=== PATIENT | female | born 1990 | race American Indian/Alaskan Native ===

== ENCOUNTER 2018-08-01 13:26 | Emergency (ER) | payer MEDICAID, OTHER ==
[2018-08-01 13:40] VITALS: BP 158/95
--- NOTE | 2018-08-01 13:42 | Emergency Department Report ---
Blank Doc - Documentation Documentation: This is a 27-year-old female that presents with left sided chest pain with rad iation to epigastric area. Denies any SOB. STated is worse when laying down. Denies any n/v. This initial assessment/diagnostic orders/clinical plan/treatment(s) is/are subject to change based on patient's health status, clinical progression and re- assessment by fellow clinical providers in the ED. Further treatment and workup at subsequent clinical providers discretion. Patient/guardians urged not to elope from the ED as their condition may be serious if not clinically assessed and managed. Initial orders include: 1- Patient sent to [facility] for further evaluation and treatment 2- EKG 3- CXR 4- labs
[2018-08-01 14:17] LABS: Basophils % (Auto) 0.8 % (0.0-1.8); Eosinophils # (Auto) 0.2 K/mm3 (0.0-0.4); Eosinophils % (Auto) 4.5 % (0.0-4.3); Hematocrit 36.8 % (30.3-42.9); Hemoglobin 12.3 gm/dl (10.1-14.3); Lymphocytes # (Auto) 1.5 K/mm3 (1.2-5.4); Lymphocytes % (Auto) 29.8 % (13.4-35.0); Mean Corpuscular HGB Conc 33 % (30-34); Mean Corpuscular Volume 88 fl (79-97); Monocytes # (Auto) 0.3 K/mm3 (0.0-0.8); Monocytes % (Auto) 6.9 % (0.0-7.3); Platelet Count 309 K/mm3 (140-440); Red Cell Distribution Width 13.9 % (13.2-15.2)
[2018-08-01 14:27] LABS: INR 0.93 (0.87-1.13)
[2018-08-01 14:28] LABS: Partial Thromboplastin Time 32.8 Sec. (24.2-36.6)
[2018-08-01 14:42] LABS: Alanine Aminotransferase 9 units/L (7-56); Albumin 4.5 g/dL (3.9-5); BUN/Creatinine Ratio 13; Blood Urea Nitrogen 9 mg/dL (7-17); Calcium 9.2 mg/dL (8.4-10.2); Hemolysis Index 11
[2018-08-01] MEDS ORDERED: ALUM-MAG HYDROX-SIMETH 200-200-20MG/5ML PO ONE (14:48)
[2018-08-01] MEDS ORDERED: LOPRESSOR PO ONE (14:48)
[2018-08-01] MEDS ORDERED: LIDOCAINE VISCOUS 2% PO ONE (14:48)
[2018-08-01] MEDS ORDERED: PEPCID PO ONE (14:48)
--- NOTE | 2018-08-01 14:49 | Emergency Department Report ---
ED Chest Pain HPI - General Chief Complaint: Chest Pain Stated Complaint: CHEST PAIN/STOMACH PAIN Time Seen by Provider: 08/01/18 13:40 Source: patient Mode of arrival: Ambulatory Limitations: No Limitations - History of Present Illness Initial Comments: Patient is a pleasant 27-year-old female who comes to the ER complaining of epigastric pain. She is pointing to her epigastrium and it radiates to her chest. It is especially bad at night when she is laying down. Patient has been off her metoprolol since due to insurance reasons. Patient states that she was put on the metoprolol for blood pressure and is unsure if it was related to her heart rate. However, patient does describe a past medical history of having a fast heart rate at times. Patient has no nausea and vomiting. She does not smoke. She is not obese. She has no family history of coronary artery disease. -: Gradual, week(s) Severity scale (0 -10): 8 Consistency: intermittent Aspirin use within the Past 7 Days: (0) No - Related Data On Oral Contraceptives: No Previous Rx's Medication Instructions Recorded Last Taken Type Famotidine [Pepcid] 20 mg PO BID #60 tablet 08/01/18 Unknown Rx Metoprolol [Lopressor TAB] 25 mg PO BID #60 tablet 08/01/18 Unknown Rx Allergies Allergy/AdvReac Type Severity Reaction Status Date / Time No Known Allergies Allergy Verified 02/12/14 15:45 Heart Score - HEART Score History: Slightly suspicious EKG: Normal Age: < 45 Risk factors: No known risk factors Troponin: < normal limit HEART Score: 0 ED Review of Systems ROS: Stated complaint: CHEST PAIN/STOMACH PAIN Other details as noted in HPI Comment: All other systems reviewed and negative Constitutional: denies: chills Eyes: denies: eye pain ENT: denies: ear pain Respiratory: see HPI. denies: cough, orthopnea Cardiovascular: as per HPI, chest pain, palpitations. denies: dyspnea on exertion, orthopnea Endocrine: denies: see HPI Gastrointestinal: as per HPI, abdominal pain. denies: nausea, vomiting Genitourinary: denies: urgency Musculoskeletal: denies: back pain Skin: denies: rash, lesions Neurological: denies: headache, weakness Psychiatric: denies: depression Hematological/Lymphatic: denies: easy bleeding ED Past Medical Hx - Past Medical History Hx Hypertension: Yes Hx Congestive Heart Failure: No Hx Diabetes: No Hx Deep Vein Thrombosis: No Hx Renal Disease: No Hx Sickle Cell Disease: No Hx Seizures: No Hx Asthma: No Hx COPD: No Hx HIV: No - Surgical History Past Surgical History?: No - Family History Family history: no significant - Social History Smoking Status: Never Smoker Substance Use Type: Alcohol - Medications Home Medications: Home Medications Medication Instructions Recorded Confirmed Last Taken Type Famotidine [Pepcid] 20 mg PO BID #60 tablet 08/01/18 Unknown Rx Metoprolol [Lopressor TAB] 25 mg PO BID #60 tablet 08/01/18 Unknown Rx ED Physical Exam - General Limitations: No Limitations General appearance: alert - Head Head exam: Present: normocephalic - Eye Eye exam: Present: normal appearance, PERRL - ENT ENT exam: Present: mucous membranes moist - Neck Neck exam: Present: normal inspection - Respiratory Respiratory exam: Present: normal lung sounds bilaterally - Cardiovascular Cardiovascular Exam: Present: regular rate - GI/Abdominal GI/Abdominal exam: Present: soft, normal bowel sounds - Extremities Exam Extremities exam: Present: normal inspection - Back Exam Back exam: Present: normal inspection - Neurological Exam Neurological exam: Present: alert, oriented X3, normal gait - Psychiatric Psychiatric exam: Present: normal affect, normal mood - Skin Skin exam: Present: warm, dry, intact ED Course Vital Signs 08/01/18 13:39 Temperature 98 F Pulse Rate 88 Respiratory 18 Rate Blood Pressure 158/95 O2 Sat by Pulse 98 Oximetry PRESLEY score - Presley Score Age > 65: (0) No Aspirin use within the Past 7 Days: (0) No 3 or more CAD Risk Factors: (0) No 2 or more Angina events in past 24 hrs: (0) No Known CAD with more than 50% Stenosis: (0) No Elevated Cardiac Markers: (0) No ST Deviation Greater than 0.5mm: (0) No PRESLEY Score: 0 ED Medical Decision Making - Lab Data Result diagrams: 08/01/18 13:58 08/01/18 13:58 - EKG Data EKG shows normal: sinus rhythm Rate: normal - EKG Data Interpretation: no acute changes - Radiology Data Radiology results: report reviewed, image reviewed NAP - Medical Decision Making Vital Signs 08/01/18 13:39 Temperature 98 F Pulse Rate 88 Respiratory 18 Rate Blood Pressure 158/95 O2 Sat by Pulse 98 Oximetry Labs 08/01/18 08/01/18 08/01/18 13:58 13:58 13:58 WBC 5.0 RBC 4.20 Hgb 12.3 Hct 36.8 MCV 88 MCH 29 MCHC 33 RDW 13.9 Plt Count 309 Lymph % (Auto) 29.8 [place] % (Auto) 6.9 Eos % (Auto) 4.5 H Baso % (Auto) 0.8 Lymph # 1.5 [place] # 0.3 Eos # 0.2 Baso # 0.0 Seg Neutrophils % 58.0 Seg Neutrophils # 2.9 PT 13.0 INR 0.93 APTT 32.8 Sodium 141 Potassium 3.3 L Chloride 103.0 Carbon Dioxide 24 Anion Gap 17 BUN 9 Creatinine 0.7 Estimated GFR > 60 BUN/Creatinine Ratio 13 Glucose 82 Calcium 9.2 Total Bilirubin 0.40 AST 15 ALT 9 Alkaline Phosphatase 50 Troponin T < 0.010 Total Protein 7.4 Albumin 4.5 Albumin/Globulin Ratio 1.6 Lipase 29 HCG, Qual 08/01/18 13:58 WBC RBC Hgb Hct MCV MCH MCHC RDW Plt Count Lymph % (Auto) [place] % (Auto) Eos % (Auto) Baso % (Auto) Lymph # [place] # Eos # Baso # Seg Neutrophils % Seg Neutrophils # PT INR APTT Sodium Potassium Chloride Carbon Dioxide Anion Gap BUN Creatinine Estimated GFR BUN/Creatinine Ratio Glucose Calcium Total Bilirubin AST ALT Alkaline Phosphatase Troponin T Total Protein Albumin Albumin/Globulin Ratio Lipase HCG, Qual Negative labs noted ekg normal xray normal dc home with dc plan of care including follow up and her home meds. - Differential Diagnosis MSKL CP V ACS V GERD Critical care attestation.: If time is entered above; I have spent that time in minutes in the direct care of this critically ill patient, excluding procedure time. ED Disposition Clinical Impression: Medical non-compliance, Chronic hypertension, GERD (gastroesophageal reflux disease) Disposition: DC-01 TO HOME OR SELFCARE Is pt being admited?: No Does the pt Need Aspirin: No Condition: Stable Instructions: Gastroesophageal Reflux Disease (ED), Hypertension (ED) Additional Instructions: meds as ordered today follow up with pcp referral below hydrate well with water diet as tolerated avoid spicy food avoid alcohol if you take motrin take with food Prescriptions: Metoprolol [Lopressor TAB] 25 mg PO BID #60 tablet Famotidine [Pepcid] 20 mg PO BID #60 tablet Referrals: DOMENICO CARY MD [Primary Care Provider] - 3-5 Days Time of Disposition: 15:19
--- NOTE | 2018-08-01 15:10 | XRay Report ---
ROUTINE CHEST, TWO VIEWS: HISTORY: chest pain. The trachea, heart, mediastinal contour, lung hudson and bony thorax are unremarkable. IMPRESSION: Unremarkable chest x-ray.
[2018-08-01] MEDS ORDERED: K-DUR PO ONE (15:15)
== END 2018-08-01 15:32 | disposition home or self-care (01) ==
LOC: ED 13:26
DX: K21.9 Gastro-esophageal reflux disease without esophagitis (principal); I10 Essential (primary) hypertension; Z91.19 Patient's noncompliance with other medical treatment and regimen
CPT/HCPCS: 36415; 71046; 80053; 83690; 84484; 84703; 85025; 85610; 85730; 93005; 93010

== ENCOUNTER 2021-02-02 03:27 | Outpatient (CLI) | payer MEDICAID, OTHER ==
[2021-02-02 04:07] VITALS: BP 121/79
[2021-02-02] MEDS ORDERED: LACTATED RINGERS 500 ML IV ONE (05:05)
--- NOTE | 2021-02-02 05:16 | Event Note ---
Date: 02/02/21 FHT's reviewed @ cat 1. Pt reports c/o constipation and cramping which spontaneously subsided upon arrival. Pt reports taking Tylenol PO for pain at home. Abdomen soft and nontender, no HSM. No contractions noted via toco since monitors applied and pt agrees. POC reviewed with pt. Pt verbalizes understanding and agrees to POC. Precautions given.
[2021-02-02 05:27] LABS: Bilirubin,Urine NEG (Negative); Blood,Urine NEG (Negative); Color,Urine Yellow (Yellow); Mucus,Urine FEW /HPF; Protein,Urine <15 mg/dL mg/dL (Negative)
--- NOTE | 2021-02-03 08:05 | Ultrasound Report ---
Obstetrical ultrasound limited INDICATION: Pelvic pain with possible placental abruption IMPRESSION: heart rate measured 145 bpm. The cervical length is 2 cm. No placental abruption id entified. Signer Name: Gunnar Ruiz MD Signed: 02/02/2021 6:17 AM Workstation Name: [id number]
== END 2021-02-02 06:06 | disposition home or self-care (01) ==
LOC: TRG 03:27 → APU 03:28 → TRG 06:06
PROVIDERS: ATTEND Student in an Organized Health Care Education/Training Program
DX: Z34.93 Encounter for supervision of normal pregnancy, unspecified, third trimester (principal); Z3A.32 32 weeks gestation of pregnancy
CPT/HCPCS: 59025; 76815; 81001

== ENCOUNTER 2021-04-05 23:50 | Emergency (ER) | payer MEDICAID ==
[2021-04-06] MEDS ORDERED: ONDANSETRON 4 MG ODT TAB PO ONE (00:40)
[2021-04-06] MEDS ORDERED: HYDROcodone/ACETAMINOPHEN 5-325 MG TAB PO ONE (00:40)
[2021-04-06] MEDS ORDERED: cephALEXin 500 MG CAP PO ONE (00:40)
[2021-04-06] MEDS ORDERED: IBUPROFEN 600 MG TAB PO ONE (00:41)
--- NOTE | 2021-04-06 02:22 | Emergency Department Report ---
- General Chief Complaint: Wound/Laceration Stated Complaint: WOUND OPENED Source: patient Mode of arrival: Ambulatory Limitations: No Limitations - History of Present Illness Initial Comments: Patient is a A0 30-year-old -Sammar[place] female who is about 10 days presents to the ED with open suprapubic wound with purulent discharge and localized pain for the last 8 hours. Patient states that she may have caused the wound to open because she kept lifting her baby and performing certain tasks at home. Patient states that the pain is mild localized in the dehisced areas of the . Patient denies fall, nausea and vomiting, fever, chills, dizziness, syncope, headache, abdominal pain, chest pain or shortness of breath. -: Sudden, hour(s) (8) Location: abdomen (suprapubic) 1 - Suprapubic wound dehiscence Place: home Patient Tetanus UTD: Yes Context: accidental Associated Symptoms: pain. denies: loss of feeling/numbness, suspect foreign body present, unable to move injured part, weakness followed by dizziness, nausea/vomiting, fever - Related Data Home Medications Medication Instructions Recorded Confirmed Last Taken Aspirin [Aspirin BABY CHEW TAB] 81 mg PO QDAY 03/24/21 03/24/21 03/22/21 22:00 Plus Iron Tablet 1 tab PO DAILY 03/24/21 03/24/21 03/22/21 08:00 Previous Rx's Medication Instructions Recorded Last Taken Type Famotidine [Pepcid] 20 mg PO BID #60 tablet 08/01/18 Unknown Rx Metoprolol [Lopressor TAB] 25 mg PO BID #60 tablet 08/01/18 10/10/20 08:00 Rx Docusate Sodium [Colace] 100 mg PO BID PRN #60 capsule 03/26/21 Unknown Rx Ferrous Sulfate [Feosol 325 MG tab] 325 mg PO BID #60 tablet 03/26/21 Unknown Rx HYDROcodone/APAP 5-325 [[place] 1 - 2 each PO Q6HR PRN #20 tablet 03/26/21 Unknown Rx 5/325] Ibuprofen [Motrin] 800 mg PO Q8HR PRN #30 tablet 03/26/21 Unknown Rx Metoprolol [Lopressor] 25 mg PO BID #30 tablet 03/26/21 Unknown Rx Metoprolol [Lopressor TAB] 50 mg PO BID #60 tablet 03/29/21 Unknown Rx cephALEXin [Keflex] 500 mg PO Q6HR #40 capsule 04/06/21 Unknown Rx Allergies Allergy/AdvReac Type Severity Reaction Status Date / Time No Known Allergies Allergy Verified 02/12/14 15:45 ED Review of Systems ROS: Stated complaint: WOUND OPENED Other details as noted in HPI Constitutional: denies: chills, fever Eyes: denies: eye pain, eye discharge, vision change ENT: denies: ear pain, throat pain Respiratory: denies: cough, shortness of breath, wheezing Cardiovascular: denies: chest pain, palpitations Endocrine: no symptoms reported Gastrointestinal: other (suprapubic surgical wound dehiscence with purulent discharge). denies: abdominal pain, nausea, diarrhea Genitourinary: denies: urgency, dysuria, discharge Musculoskeletal: denies: back pain, joint swelling, arthralgia Skin: other (Suprapubic surgical wound dehiscence with purulent discharge). denies: rash, lesions Neurological: denies: headache, weakness, paresthesias Psychiatric: denies: anxiety, depression Hematological/Lymphatic: denies: easy bleeding, easy bruising ED Past Medical Hx - Past Medical History Previous Medical History?: Yes Hx Hypertension: Yes (PIH) Hx Heart Attack/AMI: No Hx Congestive Heart Failure: No Hx Diabetes: No Hx Deep Vein Thrombosis: No Hx Liver Disease: No Hx Renal Disease: No Hx Sickle Cell Disease: No Hx Seizures: No Hx Asthma: No Hx COPD: No Hx HIV: No Additional medical history: PRE-ECLAMPSIA - Surgical History Past Surgical History?: Yes Additional Surgical History: - Social History Smoking Status: Never Smoker Substance Use Type: None - Medications Home Medications: Home Medications Medication Instructions Recorded Confirmed Last Taken Type Famotidine [Pepcid] 20 mg PO BID #60 tablet 08/01/18 03/24/21 Unknown Rx Metoprolol [Lopressor TAB] 25 mg PO BID #60 tablet 08/01/18 03/24/21 10/10/20 08:00 Rx Aspirin [Aspirin BABY CHEW TAB] 81 mg PO QDAY 03/24/21 03/24/21 03/22/21 22:00 History Plus Iron Tablet 1 tab PO DAILY 03/24/21 03/24/21 03/22/21 08:00 History Docusate Sodium [Colace] 100 mg PO BID PRN #60 capsule 03/26/21 Unknown Rx Ferrous Sulfate [Feosol 325 MG tab] 325 mg PO BID #60 tablet 03/26/21 Unknown Rx HYDROcodone/APAP 5-325 [[place] 1 - 2 each PO Q6HR PRN #20 tablet 03/26/21 Unknown Rx 5/325] Ibuprofen [Motrin] 800 mg PO Q8HR PRN #30 tablet 03/26/21 Unknown Rx Metoprolol [Lopressor] 25 mg PO BID #30 tablet 03/26/21 Unknown Rx Metoprolol [Lopressor TAB] 50 mg PO BID #60 tablet 03/29/21 Unknown Rx cephALEXin [Keflex] 500 mg PO Q6HR #40 capsule 04/06/21 Unknown Rx ED Physical Exam - General Limitations: No Limitations General appearance: alert, in no apparent distress - Head Head exam: Present: atraumatic, normocephalic, normal inspection - Eye Eye exam: Present: normal appearance, PERRL, EOMI Pupils: Present: normal accommodation - ENT ENT exam: Present: normal exam, normal orophraynx, mucous membranes moist, TM's normal bilaterally, normal external ear exam - Neck Neck exam: Present: normal inspection, full ROM - Respiratory Respiratory exam: Present: normal lung sounds bilaterally. Absent: respiratory distress, wheezes, rales, rhonchi, chest wall tenderness, accessory muscle use, decreased breath sounds, prolonged expiratory, other - Cardiovascular Cardiovascular Exam: Present: regular rate, normal rhythm, normal heart sounds. Absent: systolic murmur, diastolic murmur, rubs, gallop - GI/Abdominal GI/Abdominal exam: Present: soft, tenderness (Mild suprpaubic tenderness due to a wound dehiscence and moderate purulent discharge), normal bowel sounds. Absent: guarding, rebound, organomegaly - Extremities Exam Extremities exam: Present: normal inspection, full ROM, normal capillary refill - Back Exam Back exam: Present: normal inspection, full ROM. Absent: tenderness, CVA tende rness (R), CVA tenderness (L), muscle spasm, paraspinal tenderness, vertebral tenderness - Neurological Exam Neurological exam: Present: alert, oriented X3, CN II-XII intact, normal gait, reflexes normal - Psychiatric Psychiatric exam: Present: normal affect, normal mood, anxious - Skin Skin exam: Present: warm, dry, intact, normal color, other (Suprapubic surgical wound dehiscence with moderate purulent discharge and mild localized tenderness). Absent: rash ED Course Vital Signs 04/05/21 04/06/21 23:55 03:25 Temperature 99.2 F Pulse Rate 84 96 H Respiratory 18 16 Rate Blood Pressure 149/98 Blood Pressure 150/97 [Right] O2 Sat by Pulse 100 100 Oximetry ED Medical Decision Making - Medical Decision Making This is a A0 30-year-old -[place] female who is about 10 days presents to the ED with open suprapubic wound with purulent discharge and localized pain for the last 8 hours. Patient states that she may have caused the wound to open because she kept lifting her baby and performing certain tasks at home. Patient states that the pain is mild localized in the dehisced areas of the . In the ED, patient is alert and oriented x3 and is not in any distress but appears to be in pain. The wound was evaluated and it showed certain areas of the have opened and draining purulent discharge. The wound was then cleaned extensively with normal saline and Betadine solution and the wound edges were approximated with Steri-Strips and dressed appropriately with 4 x 4 gauze and ABD pad. Patient was also treated for pain and given initial oral antibiotics in the ED. Patient tolerated the procedure well and was discharged home on a prescription of oral antibiotics and advised to follow-up with her [facility] physician in 3 to 5 days for reevaluation. Patient was advised to contact her [facility] physician first thing on Wednesday, April 07, 2021 to schedule a follow-up appointment for further evaluation. Patient was otherwise advised to return to the ED immediately if her symptoms get worse. - Differential Diagnosis Wound infection; cellulitis; wound dehiscence Critical care attestation.: If time is entered above; I have spent that time in minutes in the direct care of this critically ill patient, excluding procedure time. ED Disposition Clinical Impression: Dehiscence of section wound, , Infection of obstetric surgical wound, Disposition: 01 HOME / SELF CARE / HOMELESS Is pt being admited?: No Does the pt Need Aspirin: No Condition: Stable Instructions: Wound Infection, [id number] Additional Instructions: Take medication with food, drink plenty of fluids and follow-up with your [facility] physician in 3 to 5 days for reevaluation. Return to the ED immediately if your symptoms get worse. Prescriptions: cephALEXin [Keflex] 500 mg PO Q6HR #40 capsule Referrals: VITO COCHRAN MD [Staff Physician] - 3-5 Days Time of Disposition: 02:21 Print Language: MALAWIAN
[2021-04-06 03:26] VITALS: BP 150/97
== END 2021-04-06 03:20 | disposition home or self-care (01) ==
LOC: ED 23:50
DX: O90.0 Disruption of cesarean delivery wound (principal); O86.00 Infection of obstetric surgical wound, unspecified; I10 Essential (primary) hypertension; Z98.890 Other specified postprocedural states
CPT/HCPCS: 99282; J3490; Q0162